=== PATIENT | female | born 1965 | race Two or more races ===

== ENCOUNTER 2017-04-12 10:06 | Outpatient (CLI) | payer OTHER ==
--- NOTE | 2017-04-12 11:09 | XRAY Report ---
THREE-VIEW LEFT FOOT: 04/12/2017 CLINICAL INDICATION: Heel spur, fasciitis. FINDINGS: AP, lateral, oblique views of the left foot demonstrate mild degenerative changes of inter phalangeal joints. Posterior calcaneal spurring is seen. No radiopaque foreign body is seen in the soft tissues. IMPRESSION: POSTERIOR CALCANEAL SPURRING AND MILD OSTEOARTHRITIS. JOB #: [id number] EXT JOB #:[id number]
== END 2017-04-12 10:07 | disposition home or self-care (01) ==
LOC: DI 10:06
PROVIDERS: ATTEND Family Medicine
DX: M77.32 Calcaneal spur, left foot (principal); M19.072 Primary osteoarthritis, left ankle and foot